=== PATIENT | male | born 1965 | race Caucasian/White ===

== ENCOUNTER 2018-08-09 21:49 | Emergency (ER) | payer MEDICAID ==
[~2018-08-09] VITALS: Ht 180.3 cm; Wt 79.0 kg
[2018-08-09 22:24] VITALS: BP 160/100
== END 2018-08-10 02:43 | disposition left against medical advice (07) ==
LOC: ER 21:49
DX: Z53.21 Procedure and treatment not carried out due to patient leaving prior to being seen by health care provider (principal)

== ENCOUNTER 2021-03-13 04:27 | Emergency (ER) | payer MEDICAID ==
[~2021-03-13] VITALS: Ht 180.3 cm; Wt 83.0 kg
[2021-03-13] MEDS ORDERED: KETOROLAC 30MG/ML VIAL IV STA (05:28)
[2021-03-13] MEDS ORDERED: METOCLOPRAMIDE HCL 10MG/2ML VIAL IV ONE (05:30)
[2021-03-13] MEDS ORDERED: SODIUM CHLORIDE 0.9% 1,000 ML IV ONE (05:30)
[2021-03-13] MEDS ORDERED: IBUP-2028 PO (08:35)
[2021-03-13] MEDS ORDERED: METO-293 PO (08:35)
[2021-03-13] MEDS ORDERED: ACETAMINOPHEN 325MG TABLET PO ONE (08:45)
[2021-03-13] MEDS ORDERED: SUMATRIPTAN SUCCINATE 6MG/0.5ML VIAL SUBCUT ONE (08:45)
[2021-03-13 09:20] VITALS: BP 150/90
== END 2021-03-13 09:37 | disposition home or self-care (01) ==
LOC: ER 04:27
DX: R51.9 Headache, unspecified (principal); R11.2 Nausea with vomiting, unspecified; I10 Essential (primary) hypertension; F16.10 Hallucinogen abuse, uncomplicated
CPT/HCPCS: 70450; 93005; 96361; 96372; 96374; 96375; 99285; J1885; J2765; J3030; J7030